=== PATIENT | female | born 1985 | race Caucasian/White ===

== ENCOUNTER 2020-02-02 21:50 | Emergency (ER) | payer OTHER ==
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
[2020-02-02 22:32] VITALS: O2SAT 98
[2020-02-02 22:38] VITALS: BP 116/101; PULSE 112
== END 2020-02-02 22:40 | disposition home or self-care (01) ==
LOC: ED 21:50
DX: F10.20 Alcohol dependence, uncomplicated (principal)
CPT/HCPCS: 36415; 80307; 99283; G0480